=== PATIENT | female | born 1975 | race Caucasian/White ===

== ENCOUNTER 2018-05-24 08:27 | Emergency (ER) | payer BC, OTHER ==
[2018-05-24] MEDS ORDERED: hydrOXYzine HCL TAB* 25 MG PO ONE (08:50)
--- NOTE | 2018-05-24 08:59 | ED ---
Psychiatric Complaint - HPI Summary HPI Summary: Patient is a 43-year-old female presenting to the ED with worsening anxiety attacks overnight after her left her yesterday afternoon unexpectedly. She does take citalopram 20 mg daily. She currently does not have a therapist, but is requesting one. She denies any SI or HI. She denies any worsening depression, however has not been able to sleep over 2 days since this has happened. She's never had a history of anxiety attacks. - History Of Current Complaint Chief Complaint: EDPsychosocial Time Seen by Provider: 05/24/18 08:38 Hx Obtained From: Patient ?: No Onset/Duration: Sudden Onset Timing: Constant Severity Initially: Moderate Severity Currently: Moderate Character: Anxious Aggravating Factor(s): Recent Stress Alleviating Factor(s): Nothing Associated Signs And Symptoms: Positive: Negative Related History: Positive For: Prior Psychiatric Issues - Anxiety and depression Ingestion History: Type/Name Of Drug - Citalopram 20 mg daily as prescribed - Risk Factor(s) Completed Suicide Risk Factors: Negative - Allergies/Home Medications Allergies/Adverse Reactions: Allergies Allergy/AdvReac Type Severity Reaction Status Date / Time No Known Allergies Allergy Verified 05/24/18 08:35 Home Medications: Home Medications Citalopram HBr 20 mg PO DAILY 05/24/18 [History Confirmed 05/24/18] PMH/Surg Hx/FS Hx/Imm Hx Previously Healthy: Yes - Immunization History Hx Pertussis Vaccination: No Immunizations Up to Date: Yes Infectious Disease History: No Infectious Disease History: Denies: Traveled Outside the [place] in Last 30 Days - Social History Occupation: Employed Full-time Lives: With Family Alcohol Use: None Hx Substance Use: No Substance Use Type: Reports: None Hx Tobacco Use: No Smoking Status (MU): Never Smoked Tobacco Review of Systems Constitutional: Negative Negative: Fever, Chills, Fatigue, Skin Diaphoresis Negative: Palpitations, Chest Pain Negative: Shortness Of Breath, Cough Genitourinary: Negative Positive: no symptoms reported, see HPI Negative: Arthralgia, Myalgia Skin: Negative Neurological: Negative Positive: Anxious, Depressed All Other Systems Reviewed And Are Negative: Yes Physical Exam Triage Information Reviewed: Yes Vital Signs On Initial Exam: Initial Vitals Temp Pulse Resp BP Pulse Ox 99.2 F 117 20 148/95 96 05/24/18 08:30 05/24/18 08:30 05/24/18 08:30 05/24/18 08:30 05/24/18 08:30 Vital Signs Reviewed: Yes Appearance: Positive: Well-Appearing, Well-Nourished Skin: Positive: Warm, Skin Color Reflects Adequate Perfusion Head/Face: Positive: Normal Head/Face Inspection Neck: Positive: Supple, No Lymphadenopathy Respiratory/Lung Sounds: Positive: Clear to Auscultation, Breath Sounds Present Cardiovascular: Positive: RRR, Pulses are Symmetrical in both Upper and Lower Extremities Musculoskeletal: Positive: Strength/ROM Intact Neurological: Positive: Sensory/Motor Intact, Alert, Oriented to Person Place, Time Psychiatric: Positive: Affect/Mood Appropriate AVPU Assessment: Alert - [place] Coma Scale Best Eye Response: 4 - Spontaneous Best Motor Response: 6 - Obeys Commands Best Verbal Response: 5 - Oriented Coma Scale Total: 15 Diagnostics - Vital Signs Vital Signs Temp Pulse Resp BP Pulse Ox 05/24/18 08:30 99.2 F 117 20 148/95 96 - Laboratory Lab Statement: Any lab studies that have been ordered have been reviewed, and results considered in the medical decision making process. Course/Dx - Course Course Of Treatment: During this patient's course of treatment, she is evaluated for worsening anxiety and anxiety attacks overnight and for the past 1.5 days. She endorses worsening symptoms since her left her yesterday afternoon. She does not have a history of anxiety attacks, but has low-level anxiety and depression at baseline. She takes citalopram 20 mg daily. She is requesting to speak with someone and is requesting resources in the community. She is currently denying any SI or HI. She took a citalopram this morning and is requesting medication on arrival. She is very tearful on arrival. I have offered hydroxyzine 25 mg and gave this to her in the ED. I've also asked the mental health unit to evaluate her and for her to obtain resources in the community. MH he was given her information on [facility] and other resources. She will be given a prescription for hydroxyzine. This medication increases QT interval was citalopram, however patient will only be taking it as needed and does not have cardiac history otherwise. - Differential Dx/Clinical Impression Differential Diagnosis/HQI/PQRI: Positive: Anxiety Provider Diagnosis: Anxiety attack Discharge - Sign-Out/Discharge Documenting (check all that apply): Patient Departure Patient Received Moderate/Deep Sedation with Procedure: No - Discharge Plan Condition: Stable Disposition: HOME Prescriptions: hydrOXYzine HCL TAB* [Atarax 25 MG TAB*] 25 mg PO QID PRN #20 tab PRN Reason: Anxiety Patient Education Materials: Anxiety (ED) Referrals: No Primary Care Phys,NOPCP [Primary Care Provider] - Additional Instructions: Take hydroxyzine 25 mg up to 4 times daily as needed for anxiety Please follow-up with [facility] - Billing Disposition and Condition Condition: STABLE Disposition: Home
[2018-05-24 10:29] VITALS: BP 150/107
== END 2018-05-24 10:27 | disposition home or self-care (01) ==
LOC: ED 08:27
DX: F41.9 Anxiety disorder, unspecified (principal); F32.9 Major depressive disorder, single episode, unspecified
CPT/HCPCS: 99283; A9270-GY